=== PATIENT | male | born 1970 | race Asian ===

== ENCOUNTER 2019-08-30 21:25 | Emergency (ER) | payer SELFPAY ==
[~2019-08-30] VITALS: Ht 172.7 cm; Wt 63.5 kg
[2019-08-30 21:25] VITALS: BP_SYST 122
[2019-08-30] MEDS ORDERED: IBUPROFEN 600 MG TABLET PO ONE (21:45)
[2019-08-30] MEDS ORDERED: MECLIZINE HCL 25 MG TABLET (ANITVERT) PO ONE (21:45)
[2019-08-30 22:04] LABS: BASOPHILS # (AUTO) 0.1 K/uL (0.0-0.2); BASOPHILS % (AUTO) 0.8 % (0.0-2.0); EOSINOPHILS # (AUTO) 0.1 K/uL (0.0-0.4); EOSINOPHILS % (AUTO) 1.8 % (0.0-4.0); HEMOGLOBIN 13.4 g/dL (14.0-18.0); LYMPHOCYTES # (AUTO) 2.6 K/uL (1.0-5.5); LYMPHOCYTES % (AUTO) 34.1 % (20.5-51.5); MEAN CORPUSCULAR HEMOGLOBIN 19 pg (27-31); MEAN CORPUSCULAR HGB CONC 32 % (32-36); MEAN CORPUSCULAR VOLUME 60 fL (79.0-98.0); MONOCYTES # (AUTO) 0.4 K/uL (0.0-1.0); MONOCYTES % (AUTO) 4.8 % (1.7-9.3); NEUTROPHILS # (AUTO) 4.5 K/uL (1.8-7.7); NEUTROPHILS % (AUTO) 58.5 % (40.0-70.0); PLATELET COUNT (AUTO) 245 K/uL (130-430); RED BLOOD CELL COUNT(AUTO) 7.05 MIL/uL (4.2-6.2); RED CELL DISTRIBUTION WIDTH 16.6 % (9.0-15.0); WHITE BLOOD COUNT (AUTO) 7.7 K/uL (4.8-10.8)
[2019-08-30 22:19] LABS: CALCIUM 8.6 mg/dL (8.4-11.0); CREATININE 0.79 mg/dL (0.55-1.30); POTASSIUM 3.9 mmol/L (3.5-5.1)
[2019-08-30 22:24] LABS: ALBUMIN 4.1 g/dL (3.4-4.8); TOTAL BILIRUBIN 0.8 mg/dL (0.0-1.0)
[2019-08-30] MEDS ORDERED: HYDROcodone/ACETAMIN 5-325 MG TAB (NORCO/ VICODIN) PO ONE (22:45)
[2019-08-30 23:54] VITALS: BP_SYST 122
== END 2019-08-30 23:54 | disposition home or self-care (01) ==
LOC: SED 21:25
DX: R51 Headache (principal)
CPT/HCPCS: 36415; 80053; 85025; 99284; J8597

== ENCOUNTER 2019-09-04 18:46 | Emergency (ER) | payer OTHER ==
[~2019-09-04] VITALS: Ht 162.6 cm; Wt 65.8 kg
[2019-09-04 19:09] VITALS: BP_SYST 111
--- NOTE | 2019-09-04 19:47 | NUR ---
Patient to ER bed 03 for evaluation. Side rails up.
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
[2019-09-04] MEDS ORDERED: IBUPROFEN 600 MG TABLET PO ONE (20:45)
--- NOTE | 2019-09-04 21:09 | NUR ---
Medication administered. Pt tolerated well.
[2019-09-04 21:22] VITALS: BP_SYST 121
--- NOTE | 2019-09-04 21:22 | NUR ---
Patient given written and verbal discharge instructions and verbalizes understanding. ER MD Ryan discussed with patient the results and treatment provided. Patient in stable condition. ID arm band removed. No Rx given. Patient educated on pain management and to follow up with PMD. Pain Scale 2. Opportunity for questions provided and answered. Medication side effect fact sheet provided.
== END 2019-09-04 21:22 | disposition home or self-care (01) ==
LOC: SED 18:46
DX: R51 Headache (principal)
CPT/HCPCS: 99282